=== PATIENT | female | born 1975 | race Caucasian/White ===

== ENCOUNTER 2017-08-19 05:08 | Emergency (ER) | payer SELFPAY ==
[2017-08-19] MEDS ORDERED: ASPIRIN 81 MG TABLET, CHEWABLE PO ONE (05:36)
[2017-08-19 05:49] LABS: ABSOLUTE BASOPHILS # (AUTO) 0.1 10^3/uL (0.0-0.2); ABSOLUTE EOSINOPHILS # (AUTO) 0.3 10^3/uL (0.0-0.6); ABSOLUTE LYMPHOCYTES (AUTO) 2.8 10^3/uL (0.5-4.7); ABSOLUTE MONOCYTES (AUTO) 0.6 10^3/uL (0.1-1.4); ABSOLUTE NEUT (AUTO) 4.6 10^3/uL (1.7-8.2); BASOPHILS % (AUTO) 0.8 % (0-2); EOSINOPHILS % (AUTO) 3.6 % (0-6); HEMATOCRIT 45.8 % (36.0-47.0); HEMOGLOBIN 15.6 g/dL (12.0-15.5); LYMPHOCYTES % (AUTO) 33.5 % (13-45); MEAN CORPUSCULAR HEMOGLOBIN 30.2 pg (27.0-33.4); MEAN CORPUSCULAR VOLUME 89 fl (80-97); MONOCYTES % (AUTO) 7.4 % (3-13); PLATELET COUNT 345 10^3/uL (150-450); RED BLOOD COUNT 5.16 10^6/uL (3.72-5.28); RED CELL DISTRIBUTION WIDTH 13.3 % (11.5-14.0); SEGMENTED NEUTROPHILS % (AUTO) 54.7 % (42-78); TOTAL CELLS COUNTED % (AUTO) 100 %; WHITE BLOOD COUNT 8.4 10^3/uL (4.0-10.5)
--- NOTE | 2017-08-19 05:59 | RADIOLOGY REPORT (SQ) ---
EXAM DESCRIPTION: Single view of the chest CLINICAL HISTORY: chest pain COMPARISON: None. FINDINGS: Single frontal view of the chest. The cardiomediastinal silhouette has normal size and contour. No consolidation, pneumothorax, or pleural effusion. Leads overlie the chest. No displaced rib fractures identified. Upper abdominal soft tissues are unremarkable. IMPRESSION: 1. No acute pulmonary process identified.
[2017-08-19 06:02] LABS: ALANINE AMINOTRANSFERASE 30 U/L (9-52); ALBUMIN 4.3 g/dL (3.5-5.0); ALKALINE PHOSPHATASE 77 U/L (38-126); ANION GAP 12 (5-19); ASPARTATE AMINO TRANSFERASE 20 U/L (14-36); BILIRUBIN,DIRECT 0.3 mg/dL (0.0-0.4); BILIRUBIN,TOTAL 0.3 mg/dL (0.2-1.3); BLOOD UREA NITROGEN 18 mg/dL (7-20); CALCIUM 10.4 mg/dL (8.4-10.2); CARBON DIOXIDE 24 mmol/L (22-30); CHLORIDE 107 mmol/L (98-107); CREATINE KINASE 50 U/L (30-135); GLUCOSE 88 mg/dL (75-110); POTASSIUM 4.4 mmol/L (3.6-5.0); SODIUM 143.1 mmol/L (137-145); TOTAL PROTEIN 7.1 g/dL (6.3-8.2)
[2017-08-19 06:22] LABS: TROPONIN I < 0.012 ng/mL
--- NOTE | 2017-08-19 06:43 | ER Document Report ---
ED General <ELLA HAAS - Last Filed: 08/19/17 06:44> - General Mode of Arrival: Ambulatory Information source: Patient TRAVEL OUTSIDE OF THE [place] IN LAST 30 DAYS: No <AURA RBOWN - Last Filed: 08/19/17 08:45> - General Chief Complaint: Chest Pain Stated Complaint: CHEST PAINS Time Seen by Provider: 08/19/17 06:31 Notes: Patient is a 41 year old female that presents to the emergency department today with complaints of chest pain beginning at 2200 last night. Patient states she has had this pain off and on since June. Patient states that she was able to go to sleep and then she was awoken again with left sided chest wall pain at 0430 that "hurt so bad she couldn't see straight". Patient is a smoker but she states her pain today scared her enough to stop smoking. Patient states she was diaphoretic despite "having the house set on 68 and a fan blowing on her". ( AURA BROWN) Past Medical History - Social History Cigarette use (# per day): Yes - 1 PPD Smoking Education Provided: Yes - 3 minutes counseling,patient states this pain has scared her enough to stop <ELLA HAAS - Last Filed: 08/19/17 06:44> - General Information source: Patient - Social History Smoking Status: Current Every Day Smoker Cigarette use (# per day): Yes Chew tobacco use (# tins/day): No Smoking Education Provided: Yes Frequency of alcohol use: None Drug Abuse: None Lives with: Family Family History: Reviewed & Not Pertinent Patient has suicidal ideation: No Patient has homicidal ideation: No - Medical History Medical History: Negative Renal/ Medical History: Denies: Hx Peritoneal Dialysis Past Surgical History: Reports: Hx Adenoidectomy, Hx Tonsillectomy, Hx Tubal Ligation <AURA BROWN - Last Filed: 08/19/17 08:45> Review of Systems - Review of Systems Constitutional: See HPI, Diaphoresis EENT: No symptoms reported Cardiovascular: See HPI, Chest pain Respiratory: No symptoms reported Gastrointestinal: No symptoms reported Genitourinary: No symptoms reported Female Genitourinary: No symptoms reported Musculoskeletal: No symptoms reported Skin: No symptoms reported Hematologic/Lymphatic: No symptoms reported Neurological/Psychological: No symptoms reported -: Yes All other systems reviewed and negative <AURA BROWN - Last Filed: 08/19/17 08:45> Physical Exam - Vital signs Interpretation: Normal - General General appearance: Appears well, Alert - HEENT Head: Normocephalic, Atraumatic Eyes: Normal Pupils: PERRL - Respiratory Respiratory status: No respiratory distress Chest status: Tender - left chest wall exquisite tenderness with palpation under breast -- same area on the right is not tender with palpation. LUE movement causes pain in left chest wall. Breath sounds: Normal Chest palpation: Normal - Cardiovascular Rhythm: Regular Heart sounds: Normal auscultation Murmur: No - Abdominal Inspection: Obese Distension: No distension Bowel sounds: Normal Tenderness: Nontender Organomegaly: No organomegaly - Back Back: Normal, Nontender - Extremities General upper extremity: Normal inspection, Nontender, Normal ROM General lower extremity: Normal inspection, Nontender, Normal ROM - Neurological Neuro grossly intact: Yes Cognition: Normal Orientation: AAOx4 [place] Coma Scale Eye Opening: Spontaneous [place] Coma Scale Verbal: Oriented [place] Coma Scale Motor: Obeys Commands [place] Coma Scale Total: 15 Speech: Normal - Psychological Associated symptoms: Anxious - Skin Skin Temperature: Warm Skin Moisture: Dry Skin Color: Normal <AURA BROWN - Last Filed: 08/19/17 08:45> - Vital signs Vitals: Pulse Resp BP Pulse Ox 83 18 146/93 H 98 08/19/17 05:13 08/19/17 05:13 08/19/17 05:13 08/19/17 05:13 Course - Laboratory Result Diagrams: 08/19/17 05:20 08/19/17 05:20 - Diagnostic Test Radiology reviewed: Image reviewed, Reports reviewed - Normal chest x-ray - EKG Interpretation by Al EKG shows normal: Sinus rhythm, [place], Intervals, QRS Complexes, ST-T Waves Rate: Normal - 87 Rhythm: NSR <ELAL HAAS - Last Filed: 08/19/17 06:44> - Laboratory Result Diagrams: 08/19/17 05:20 08/19/17 05:20 <AURA BROWN - Last Filed: 08/19/17 08:45> - Re-evaluation Re-evalutation: 08/19/17 06:47 The patient's EKG is completely normal, troponin is undetectable, the patient does have an explanation for the strain to her left chest wall and that she was lifting multiple heavy cases of beer to put away at work 1 week ago. (ELLA HAAS) - Vital Signs Vital signs: Temp Pulse Resp BP Pulse Ox 98.3 F 77 18 115/87 H 98 08/19/17 05:29 08/19/17 06:51 08/19/17 06:51 08/19/17 06:51 08/19/17 06:51 - Laboratory Laboratory results interpreted by me: 08/19/17 08/19/17 05:20 05:20 Hgb 15.6 H Calcium 10.4 H Discharge <ELLA HAAS - Last Filed: 08/19/17 06:44> <AURA BROWN - Last Filed: 08/19/17 08:45> - Discharge Clinical Impression: Acute chest wall pain Condition: Stable Disposition: HOME, SELF-CARE Additional Instructions: Chest Wall Pain Your chest pain has been diagnosed as coming from the chest wall. This is often caused by straining the muscles or joints in the chest during physical activity, direct trauma, coughing, or vigorous vomiting. Persons with arthritis are especially prone to this type of pain, due to inflammation of the cartilage joints near the breast bone. Occasionally, no cause can be found. Rest from strenuous physical activity. This kind of chest pain is usually made worse by movement of the chest. Depending on the symptoms, we may prescribe medicine for pain, muscle relaxation, and antiinflammatory effects. If the pain is new, and seems to be due to muscle strain, cold packs can help. Otherwise, apply gentle warmth to the painful area for 15 minutes every hour or two. You should contact the doctor immediately if things change. Further evaluation is needed if you develop a fever or cough, if the nature of the pain changes, or if you become short of breath. Take Tylenol and Motrin or Aleve for your chest wall pain. Try moist heat when you are resting at home. Try to limit activity and heavy lifting, particularly using your left arm. Follow-up with a local medical doctor if not improving. RETURN TO THE EMERGENCY ROOM IF ANY NEW OR WORSENING SYMPTOMS. Forms: Return to Work Scribe Attestation: 08/19/17 06:46 I personally performed the services described in the documentation, reviewed and edited the documentation which was dictated to the scribe in my presence, and it accurately records my words and actions. (ELLA HAAS) Scribe Documentation - Scribe Written by Scribe:: Lisa Espinosa, 08/19/2017 [id number] acting as scribe for :: Jed <AURA BROWN - Last Filed: 08/19/17 08:45>
[2017-08-19] MEDS ORDERED: KETOROLAC TROMETHAMINE INJ/PF 30 MG/1 ML SDV IV ONE (06:46)
[2017-08-19 06:52] VITALS: BP 115/87
--- NOTE | 2017-08-19 08:27 | EKG REPORT ---
SEVERITY:- NORMAL ECG - SINUS RHYTHM : Confirmed by: Sonali Espinosa 19-Aug-2017 05:26:14
== END 2017-08-19 07:11 | disposition home or self-care (01) ==
LOC: ER 05:08
DX: R07.89 Other chest pain (principal); R61 Generalized hyperhidrosis; F17.210 Nicotine dependence, cigarettes, uncomplicated
CPT/HCPCS: 93005; 99285; 96374; 36415; 82553; 82550; 85025; 80053; 84484; 71045; 93010; J1885

== ENCOUNTER → 2017-09-16 | Outpatient (CLI) | payer OTHER ==
[2017-09-16 09:38] LABS: ABSOLUTE EOSINOPHILS # (AUTO) 0.3 10^3/uL (0.0-0.6); ABSOLUTE LYMPHOCYTES (AUTO) 2.1 10^3/uL (0.5-4.7); ABSOLUTE MONOCYTES (AUTO) 0.4 10^3/uL (0.1-1.4); ABSOLUTE NEUT (AUTO) 4.3 10^3/uL (1.7-8.2); BASOPHILS % (AUTO) 0.6 % (0-2); EOSINOPHILS % (AUTO) 3.6 % (0-6); HEMATOCRIT 42.9 % (36.0-47.0); HEMOGLOBIN 14.6 g/dL (12.0-15.5); LYMPHOCYTES % (AUTO) 29.1 % (13-45); MEAN CORPUSCULAR HEMOGLOBIN 30.4 pg (27.0-33.4); MEAN CORPUSCULAR HGB CONC 34.1 g/dL (32.0-36.0); MEAN CORPUSCULAR VOLUME 89 fl (80-97); MONOCYTES % (AUTO) 6.1 % (3-13); PLATELET COUNT 307 10^3/uL (150-450); RED BLOOD COUNT 4.81 10^6/uL (3.72-5.28); RED CELL DISTRIBUTION WIDTH 13.3 % (11.5-14.0); SEGMENTED NEUTROPHILS % (AUTO) 60.6 % (42-78); TOTAL CELLS COUNTED % (AUTO) 100 %; WHITE BLOOD COUNT 7.2 10^3/uL (4.0-10.5)
[2017-09-16 10:02] LABS: ALANINE AMINOTRANSFERASE 21 U/L (9-52); ALKALINE PHOSPHATASE 65 U/L (38-126); ANION GAP 10 (5-19); ASPARTATE AMINO TRANSFERASE 17 U/L (14-36); BILIRUBIN,DIRECT 0.2 mg/dL (0.0-0.4); BILIRUBIN,TOTAL 0.2 mg/dL (0.2-1.3); BLOOD UREA NITROGEN 10 mg/dL (7-20); CALCIUM 9.4 mg/dL (8.4-10.2); CARBON DIOXIDE 26 mmol/L (22-30); CHLORIDE 107 mmol/L (98-107); CHOLESTEROL 154.83 mg/dL (0-200); GLUCOSE 89 mg/dL (75-110); POTASSIUM 4.5 mmol/L (3.6-5.0); SODIUM 142.9 mmol/L (137-145); TOTAL PROTEIN 6.6 g/dL (6.3-8.2); TRIGLYCERIDES 105 mg/dL (<150)
[2017-09-16 10:13] LABS: DIRECT LDL 73 mg/dL (<100)
== END ==
LOC: CCC 08:31
DX: Z12.9 Encounter for screening for malignant neoplasm, site unspecified (principal)
CPT/HCPCS: 36415; 80053; 80061; 83001; 83002; 83036; 84443; 85025